=== PATIENT | male | born 1945 | race Caucasian/White ===

== ENCOUNTER → 2016-08-23 | Outpatient (CLI) | payer MEDICARE, BC ==
--- NOTE | 2016-08-23 12:07 | CT ---
EXAM DESCRIPTION: Chest CT. CLINICAL HISTORY: Shortness of breath. COMPARISON: None. TECHNIQUE: A volumetric CT with IV contrast was acquired and displayed in multiplanar reconstructions. FINDINGS: Mediastinum: Coronary artery disease is noted. Visualized lymph nodes are within normal limits for CT size criteria. No acute aortic abnormality, pericardial effusion, or mediastinal mass. Upper Abdomen: Extensive previous granulomatous disease seen within the liver and spleen. Visualized segments of the abdominal organs are unremarkable. Lungs: 4.5 mm right middle lobe pulmonary nodule. Superior segment left lower lobe pulmonary nodule measuring 1.5 x 0.7 cm in diameter. The lungs are otherwise unremarkable with minimal dependent changes seen bilaterally. No pleural disease. No pneumothorax. Bones: No suspicious bone lesion is seen. IMPRESSION: Today's exam demonstrates bilateral indeterminate pulmonary nodules the largest is on the left and measures 1.5 x 0.7 cm in diameter. Please refer to the followup schedule listed below based on patient risk. Coronary artery disease is also noted. As per Fleischner Society guidelines for follow-up and management of pulmonary nodules: Recommend initial follow-up chest CT at 3, 9 and 24 months. Consider contrast enhanced chest CT, PET scan and/or biopsy as clinically warranted. Electronically signed by: James Arreola MD 08/23/2016 12:05
== END | disposition home or self-care (01) ==
LOC: CT 09:06
PROVIDERS: ATTEND Family Medicine
DX: R91.1 Solitary pulmonary nodule (principal)

== ENCOUNTER → 2016-09-29 | Outpatient (CLI) | payer MEDICARE, BC ==
--- NOTE | 2016-09-29 10:45 | CT ---
EXAM DESCRIPTION: Chest w/o Contrast CLINICAL HISTORY: LUNG NODULE COMPARISON: CT chest 08/23/2016 TECHNIQUE: Multiple axial images of the chest without contrast. Multiplanar reconstructions were provided. FINDINGS: Lungs: A 1.4 x 0.7 cm pulmonary nodule in the left lower lobe is not significantly changed. There is also a stable 5 mm right upper lobe pulmonary nodule. No new pulmonary nodule or pleural effusion. Mediastinum: The heart is normal in size. Severe coronary artery atherosclerosis. Calcific plaque in the aortic arch. The trachea and esophagus are unremarkable. Lymph nodes: There are no pathologically enlarged lymph nodes by CT size criteria. Chest wall and lower neck: No significant finding. Bones: There is no destructive osseous lesion Upper abdomen: Numerous hepatic and splenic calcified granulomas are again demonstrated. Colonic diverticulosis. IMPRESSION: 1. Stable pulmonary nodules, including a dominant 1.4 cm nodule in the left lower lobe. Follow-up per guidelines below. At a minimum, [address] follow-up is recommended. Alternatively, a PET/CT or tissue sampling should be considered. 2. Severe coronary artery atherosclerosis. 3. Other findings as above. As per Fleischner Society guidelines for follow-up and management of pulmonary nodules: Recommend initial follow-up chest CT at 3, 9 and 24 months. Consider contrast enhanced chest CT, PET scan and/or biopsy as clinically warranted. Electronically signed by: Matthieu Liu MD 09/29/2016 10:43 AM CDT
== END | disposition home or self-care (01) ==
LOC: CT 10:10
PROVIDERS: ATTEND Internal Medicine
DX: R91.8 Other nonspecific abnormal finding of lung field (principal)

== ENCOUNTER → 2016-11-15 | Outpatient (CLI) | payer MEDICARE, BC | END | disposition home or self-care (01) | LOC: GMAM 10:28 | PROVIDERS: ATTEND Family Medicine | DX: Z12.5 Encounter for screening for malignant neoplasm of prostate (principal) ==

== ENCOUNTER → 2016-12-25 | Outpatient (CLI) | payer MEDICARE, BC ==
--- NOTE | 2016-12-25 10:08 | CT ---
EXAM DESCRIPTION: Chest w/Contrast CLINICAL HISTORY: PULMONARY NODULE COMPARISON: September 29, 2016 and August 23, 2016 TECHNIQUE: Chest CT was performed with IV contrast. This exam was performed according to our departmental dose-optimization program, which includes automated exposure control, adjustment of the mA and/or kV according to patient size and/or use of iterative reconstruction technique. FINDINGS: The thyroid and thoracic inlet are unremarkable. There is no thoracic aortic aneurysm or dissection. Coronary artery calcifications are noted. The main pulmonary artery is not dilated. There is no esophageal wall thickening. No mediastinal or hilar adenopathy. The central airways are clear. Emphysematous changes are noted in the lung apices. Again seen is a 4 mm noncalcified right middle lobe nodule (series 301 image 55), stable from prior exams. A 12 mm noncalcified left lower lobe nodule (series 301 image 59) is also stable from prior studies. No new lung nodule. Visualized portions of the upper abdomen show multiple tiny calcified splenic and hepatic granulomata. No concerning bone lesion. IMPRESSION: Single noncalcified right middle and left lower lobe nodules, the largest measuring 12 mm diameter as detailed above. Both nodules are stable from prior exams dating back to August,. Per updated Fleischner Society recommendations, additional follow-up CT in 18-24 months from August 23, 2016 is recommended for further evaluation. Emphysema, coronary artery disease and evidence of old healed granulomatous disease, otherwise unremarkable exam. Electronically signed by: Jed Galvan MD 12/25/2016 10:06 AM CDT Workstation: [id number]
== END | disposition home or self-care (01) ==
LOC: CT 08:38
PROVIDERS: ATTEND Family Medicine
DX: R91.1 Solitary pulmonary nodule (principal)

== ENCOUNTER → 2017-06-20 | Outpatient (CLI) | payer MEDICARE, BC ==
--- NOTE | 2017-06-21 14:59 | CT ---
EXAM DESCRIPTION: Chest w/Contrast CLINICAL HISTORY: 71 years, Male, PULMONARY NODULE COMPARISON: December 25, 2016 August 23, 2016 TECHNIQUE: Thin-section axial CT images are obtained during rapid bolus administration of nonionic IV contrast media. Reconstructed MPR images are created and reviewed as well. This exam was performed according to our departmental dose-optimization program, which includes automated exposure control, adjustment of the mA and/or kV according to patient size and/or use of iterative reconstruction technique. FINDINGS: Contrast enhanced examination demonstrates a persistent bilobed nodule in the superior segment of the lower lobe left lung that measures 14 x 9 mm in size to my measurement is entirely unchanged in comparison to most recent December 2016 and more remote August 2016 examination. A stable 4 mm nodule in the right middle lobe is noted as well. New pulmonary nodules elsewhere are not apparent. Consolidation or pleural effusions or additional abnormalities are not evident. Below the diaphragms small granulomatous calcifications within the liver and spleen are noted. Moderately extensive coronary calcification is noted. Mediastinal or hilar adenopathy is not apparent. Good vascular enhancement was achieved. The adrenal glands and upper pole of the kidneys are unremarkable. IMPRESSION: 1. Stable bilobed 9 x 14 mm nodule superior segment of the left lower lobe and 4 mm nodule within the right middle lobe, unchanged from multiple prior studies. Longer term follow-up with repeat imaging in 9-12 months is recommended. 2. Granulomatous calcifications within the liver and spleen. 3. Previously noted emphysematous changes and coronary artery calcification. Electronically signed by: Garrison Olivares MD 06/21/2017 2:58 PM [facility]
== END ==
LOC: CT 08:40
PROVIDERS: ATTEND Family Medicine
DX: R91.1 Solitary pulmonary nodule (principal); I25.10 Atherosclerotic heart disease of native coronary artery without angina pectoris

== ENCOUNTER → 2018-01-23 | Outpatient (CLI) | payer MEDICARE, BC ==
--- NOTE | 2018-01-23 16:18 | CT ---
EXAM DESCRIPTION: Chest w/o Contrast . Computed tomography.. CLINICAL HISTORY: NODULES OF LUNG COMPARISON: CT scan of the chest and thorax with IV contrast 06/20/2017. TECHNIQUE: Spiral-axial scans at 5.0 mm intervals through the lungs and thorax without IV contrast. 2.5 mm lung algorithm axial reconstructions. Sagittal and coronal 2.0 Mm reconstructions. No adverse reactions. Total Exam DLP: 613.05 mGy-cm. This exam was performed according to our departmental dose-optimization program which includes automated exposure control, adjustment of the mA and/or kV according to patient size and/or use of iterative reconstruction technique; to reduce radiation dose to as low as reasonably achievable (ALARA). FINDINGS: Again seen is unusual solid pulmonary nodule in the superior segment of the left lower lobe with well-defined margins which appears to be obstructing a slightly dilated bronchus on series 4, image 64. 1.4 cm transverse 1 cm AP, and 0.7 cm craniocaudal. Stable size compared to the prior study. 4 mm groundglass nodule associated with the right horizontal fissure in the right middle lobe. Groundglass density stable in the anterior right upper lobe where right first costosternal joint is hypertrophied and impressing on the medial pleura and lung parenchyma. Bilateral apical pleural blebs. No new nodules bilaterally. No acute infiltrate pleural effusion or pneumothorax. Evaluation of soft tissues limited due to lack of IV contrast. No enlarged lymph nodes in the axilla or base of the neck. Heterogeneous density in the thyroid gland. Atherosclerotic calcifications of the aortic arch. Coronary artery calcifications. No large soft tissue masses in the mediastinum or hilum. Numerous hepatic capsule and splenic calcifications. Normal size and density of the adrenal glands. No fluid in the included peritoneal space. Other included organs are unremarkable with atherosclerotic vascular calcifications. Minimal kyphotic changes in the thoracic spine.. IMPRESSION: 1. Unusual solid nodule which may contain inspissated mucus material and appears to be plugging a slightly dilated bronchus in the superior segment of the left upper lobe. No change in the nodule, bronchial structure, or surrounding lung parenchyma, since chest CT scan in August 2016. Consider optional CT chest follow-up in one year interval, and recommended CT follow-up in 24 month interval, according to [facility] Best Practice recommendations utilizing Fleischner Society 2017 guidelines for solid solitary pulmonary nodules ( 6-8 mm category). Please see below*. 2. 4 mm groundglass nodule associated with the right horizontal fissure, and most likely a nathan-fissural nodule. No further follow-up is recommended. *2017 Fleischner Society Recommendations for Single Solid Lung Nodule Follow-Up based on size (average of long- and short-axis diameters) 6-8 mm Low-Risk Patient: CT at 6-[address] at 18-24 months 6-8 mm High-Risk Patient: CT at 6-[address] at 18-24 months Electronically signed by: Julio Del Rio MD 01/23/2018 4:17 PM CDT
== END ==
LOC: CT 09:00
PROVIDERS: ATTEND Internal Medicine
DX: J98.4 Other disorders of lung (principal)

== ENCOUNTER → 2018-05-13 | Outpatient (CLI) | payer MEDICARE, BC | LOC: GMAM 14:14 | PROVIDERS: ATTEND Family Medicine | DX: Z12.5 Encounter for screening for malignant neoplasm of prostate (principal) ==

== ENCOUNTER 2018-09-19 05:47 | Day surgery (SDC) | payer MEDICARE, BC ==
[2018-09-19] MEDS ORDERED: LACTATED RINGERS 1,000 ML ONE (06:54)
[2018-09-19] MEDS ORDERED: PROPOFOL 200 MG/20 ML VIAL IV ONE (07:00)
[2018-09-19] MEDS ORDERED: LIDOCAINE 1% 10 ML VIAL INJ ONE (07:00)
[2018-09-19] MEDS ORDERED: LACTATED RINGERS 1,000 ML IVS ONE ×2 (07:15→08:28)
[2018-09-19] MEDS ORDERED: LACTATED RINGERS 1,000 ML BAG IV ONE (07:15)
--- NOTE | 2018-09-19 09:08 | OP ---
DATE OF PROCEDURE: 09/19/18 PREOPERATIVE DIAGNOSIS: 1. Transverse tubulovillous polyp noted in 2016. POSTOPERATIVE DIAGNOSIS: 1. Colonoscopy completed to the cecum with no polyps at this time. PROCEDURE: 1. Colonoscopy. SURGEON: Garrison Briseno MD ANESTHESIA: Per Bandar Alcala CRNA. COMPLICATIONS: None apparent. TECHNIQUE: The patient was brought to the GI lab and laid in the left lateral decubitus position. Digital rectal exam was performed and found to be normal. The colonoscope was inserted into the rectum and through to the cecum with good visualization of the cecum. No polyps or masses were noted, so it was gradually withdrawn from the cecum back through the ascending colon, transverse colon into the descending colon and through the sigmoid colon with no polyps noted. In the rectum, the scope was retroflexed and then straightened with, again, normal findings. The scope was then removed. The patient tolerated the procedure well. There were no obvious complications. DISPOSITION: The patient will remain in the outpatient area until he is cleared from anesthesia standpoint and then will be discharged home. He will followup with me in a week. We will anticipate him needing a repeat colonoscopy in 5 years with possibly a Cologuard in 2 to 3 years. #[id number] MTDD
[2018-09-19 10:12] VITALS: BP 128/68; TEMP 97.8; O2SAT 99
== END 2018-09-19 10:10 | disposition home or self-care (01) ==
LOC: AMB 05:47
PROVIDERS: ATTEND Family Medicine
DX: Z09 Encounter for follow-up examination after completed treatment for conditions other than malignant neoplasm (principal); E11.9 Type 2 diabetes mellitus without complications; E78.2 Mixed hyperlipidemia; I10 Essential (primary) hypertension; I65.29 Occlusion and stenosis of unspecified carotid artery; Z86.010 Personal history of colon polyps; Z87.891 Personal history of nicotine dependence; Z79.4 Long term (current) use of insulin; Z79.899 Other long term (current) drug therapy
CPT/HCPCS: 00811; 36416; 45378; 82948; J3490; J7120

== ENCOUNTER → 2019-01-22 | Outpatient (CLI) | payer MEDICARE, BC ==
--- NOTE | 2019-01-22 13:39 | CT ---
EXAM DESCRIPTION: Chest w/o Contrast CLINICAL HISTORY: 73 years Male, LUNG NODULES COMPARISON: 23 January 2018 TECHNIQUE: Transaxial images were obtained without intravenous contrast media. Sagittal and coronal reconstruction was performed.This exam was performed according to our departmental dose-optimization program, which includes automated exposure control, adjustment of the mA and/or kV according to patient size and/or use of iterative reconstruction technique. FINDINGS: The thyroid is normal in appearance. No pathologic axillary adenopathy is observed. No hilar or mediastinal adenopathy is seen. Coronary artery calcification is observed. Scattered calcified granulomas are seen throughout the liver and spleen. No adrenal masses are detected. No pleural fluid is seen. A left lower lobe pulmonary nodule is again observed and remains unchanged from the previous examination. It remains unchanged since 23 August 2016. No further follow-up is felt warranted. A groundglass nodule is again observed in the region of the fissure. No further pulmonary nodule or mass is seen. IMPRESSION: Pulmonary nodules are again identified and are unchanged and probably represent noncalcified granulomas.. No further follow-up is warranted. Electronically signed by: Sea Aguiar MD 01/22/2019 1:37 PM CDT
== END ==
LOC: CT 10:39
PROVIDERS: ATTEND Internal Medicine
DX: J98.4 Other disorders of lung (principal); R91.8 Other nonspecific abnormal finding of lung field

== ENCOUNTER → 2020-02-11 | Outpatient (CLI) | payer MEDICARE, BC | LOC: GMAM 12:19 | PROVIDERS: ATTEND Family Medicine | DX: Z12.5 Encounter for screening for malignant neoplasm of prostate (principal) ==